=== PATIENT | male | born 1950 | race Caucasian/White ===

== ENCOUNTER 2017-12-22 07:53 | Inpatient (IN) | payer OTHER, MEDICARE ==
[~2017-12-22] VITALS: Ht 175.3 cm; Wt 105.6 kg
[2017-12-22] MEDS ORDERED: ALBUTEROL/IPRATROPIUM 2.5MG/0.5MG, 3 ML ONE ×2 (08:27→09:40)
[2017-12-22 09:11] LABS: BASOPHILS # (AUTO) 0.02 x10^3/uL (0-0.1); BASOPHILS % (AUTO) 0 % (0-1); EOSINOPHILS % (AUTO) 5 % (1-7); LYMPHOCYTES # (AUTO) 1.46 x10^3/uL (1-3.4); LYMPHOCYTES % (AUTO) 18 % (22-44); MD NO; MEAN CORPUSCULAR HEMOGLOBIN 31.5 pg (27.5-34.5); MEAN CORPUSCULAR HGB CONC 34.3 g/dL (33.2-36.2); MEAN CORPUSCULAR VOLUME 91.7 fL (81-97); MEAN PLATELET VOLUME 10.5 fL (7.4-10.4); MONOCYTES # (AUTO) 1.13 x10^3/uL (0.2-0.8); MONOCYTES % (AUTO) 14 % (2-9); NEUTROPHILS # (AUTO) 4.93 x10^3/uL (1.8-6.8); NEUTROPHILS % (AUTO) 62 % (42-75); PLATELET COUNT 140 x10^3/uL (130-400); RED BLOOD COUNT 4.99 x10^6/uL (4.38-5.82); RED CELL DISTRIBUTION WIDTH 13.1 % (9.4-14.8)
[2017-12-22 09:14] LABS: ALBUMIN 3.9 g/dL (3.4-5.0); ANION GAP 10 mmol/L (5-15); CALCIUM 9.1 mg/dL (8.5-10.1); CHLORIDE 107 mmol/L (98-107)
[2017-12-22 09:19] LABS: ALANINE AMINOTRANSFERASE 61 U/L (12-78); ALKALINE PHOSPHATASE 40 U/L (45-117); BILIRUBIN,TOTAL 0.4 mg/dL (0.2-1.0); CREATININE 1.08 mg/dL (0.7-1.3); TOTAL PROTEIN 7.3 g/dL (6.4-8.2); TROPONIN I < 0.015 ng/mL (0.000-0.045)
[2017-12-22] MEDS ORDERED: ALBUTEROL/IPRATROPIUM 2.5MG/0.5MG, 3 ML NPPB ONE (09:30)
[2017-12-22] MEDS ORDERED: MONT10TA9 PO (11:20)
[2017-12-22] MEDS ORDERED: OMEP10CA4 PO (11:20)
[2017-12-22] MEDS ORDERED: TIOT4MIS2 INH (11:20)
[2017-12-22] MEDS ORDERED: LISI-170 PO (11:20)
[2017-12-22] MEDS ORDERED: PREG200C PO (11:20)
[2017-12-22] MEDS ORDERED: AMLO10TA2 PO (11:20)
[2017-12-22] MEDS ORDERED: PRED5TAB PO (11:20)
[2017-12-22] MEDS ORDERED: FENO160T PO (11:20)
[2017-12-22] MEDS ORDERED: ENALAPRILAT 1.25 MG/ML, 2ML IVPush PRN (11:30)
[2017-12-22] MEDS ORDERED: ALBUTEROL SULFATE 2.5 MG/3 ML NPPB PRN ×2 (11:30→15:30)
[2017-12-22] MEDS ORDERED: ONDANSETRON 2MG/ML, 2ML IVPush PRN (11:30)
[2017-12-22] MEDS ORDERED: ALBUTEROL/IPRATROPIUM 2.5MG/0.5MG, 3 ML HHN SCH (11:30)
[2017-12-22] MEDS ORDERED: CEFTRIAXONE 1,000 MG in DEXTROSE 5% 50 ML IV SCH (12:00)
[2017-12-22 12:13] LABS: TROPONIN I < 0.015 ng/mL (0.000-0.045)
[2017-12-22 12:16] VITALS: BP 121/83
[2017-12-22] MEDS: ENOXAPARIN 40 MG/0.4 ML SQ SCH (13:24)
[2017-12-22] MEDS: CEFTRIAXONE 1,000 MG in SODIUM CHLORIDE 0.9% 50 ML IVPB SCH (13:24)
[2017-12-22] MEDS: AZITHROMYCIN 500 MG in SODIUM CHLORIDE 0.9% 250 ML IV SCH (14:29)
[2017-12-22] MEDS: methylPREDNISolone SOD SUCC 125 MG/2 ML IVPush SCH ×2 (14:31→20:50)
[2017-12-22] MEDS ORDERED: ALBUTEROL SULFATE 2.5 MG/3 ML NPPB SCH (15:00)
[2017-12-22] MEDS: GUAIFENESIN 200 MG TABLET PO SCH ×2 (16:09→20:50)
[2017-12-22 19:22] LABS: TROPONIN I < 0.015 ng/mL (0.000-0.045)
[2017-12-22 19:45] VITALS: BP 99/60
[2017-12-22] MEDS: ALBUTEROL/IPRATROPIUM 2.5MG/0.5MG, 3 ML NPPB SCH (20:00)
[2017-12-23 01:58] VITALS: BP 105/60
[2017-12-23] MEDS: methylPREDNISolone SOD SUCC 125 MG/2 ML IVPush SCH ×4 (03:03→20:14)
[2017-12-23 05:12] LABS: BASOPHILS # (AUTO) 0.01 x10^3/uL (0-0.1); BASOPHILS % (AUTO) 0 % (0-1); EOSINOPHILS % (AUTO) 0 % (1-7); LYMPHOCYTES # (AUTO) 0.62 x10^3/uL (1-3.4); LYMPHOCYTES % (AUTO) 5 % (22-44); MD NO; MEAN CORPUSCULAR HEMOGLOBIN 31.9 pg (27.5-34.5); MEAN CORPUSCULAR HGB CONC 34.5 g/dL (33.2-36.2); MEAN CORPUSCULAR VOLUME 92.6 fL (81-97); MONOCYTES # (AUTO) 0.26 x10^3/uL (0.2-0.8); MONOCYTES % (AUTO) 2 % (2-9); NEUTROPHILS # (AUTO) 10.81 x10^3/uL (1.8-6.8); NEUTROPHILS % (AUTO) 92 % (42-75); PLATELET COUNT 143 x10^3/uL (130-400); RED BLOOD COUNT 4.72 x10^6/uL (4.38-5.82); RED CELL DISTRIBUTION WIDTH 12.5 % (9.4-14.8)
[2017-12-23 05:23] LABS: ALBUMIN 3.6 g/dL (3.4-5.0); ANION GAP 11 mmol/L (5-15); CHLORIDE 107 mmol/L (98-107)
[2017-12-23 05:27] LABS: ALANINE AMINOTRANSFERASE 52 U/L (12-78); ALKALINE PHOSPHATASE 35 U/L (45-117); BILIRUBIN,TOTAL 0.4 mg/dL (0.2-1.0); CREATININE 1.15 mg/dL (0.7-1.3); TOTAL PROTEIN 6.9 g/dL (6.4-8.2)
[2017-12-23] MEDS: GUAIFENESIN 200 MG TABLET PO SCH ×4 (05:58→20:14)
[2017-12-23] MEDS: ALBUTEROL/IPRATROPIUM 2.5MG/0.5MG, 3 ML NPPB SCH ×4 (07:00→19:12)
[2017-12-23 08:40] VITALS: BP 119/79
[2017-12-23 13:11] LABS: HEMOGLOBIN A1C 6.8 % (4.2-6.3)
[2017-12-23] MEDS: ENOXAPARIN 40 MG/0.4 ML SQ SCH (13:26)
[2017-12-23] MEDS: CEFTRIAXONE 1,000 MG in SODIUM CHLORIDE 0.9% 50 ML IVPB SCH (13:28)
[2017-12-23 14:10] VITALS: BP 108/64
[2017-12-23] MEDS: AZITHROMYCIN 500 MG in SODIUM CHLORIDE 0.9% 250 ML IV SCH (14:53)
[2017-12-23] MEDS: PREGABALIN 200 MG CAPSULE PO SCH ×2 (16:48→20:14)
[2017-12-23] MEDS: INSULIN LISPRO 100 UNITS/ML, PEN SQ-INSULIN SCH ×2 (18:23→20:14)
[2017-12-23 19:09] VITALS: BP 116/70
[2017-12-23] MEDS: MONTELUKAST 10 MG TABLET PO SCH (20:14)
[2017-12-24 02:08] VITALS: BP 117/81
[2017-12-24] MEDS: methylPREDNISolone SOD SUCC 125 MG/2 ML IVPush SCH ×4 (03:10→20:29)
[2017-12-24] MEDS: GUAIFENESIN 200 MG TABLET PO SCH ×4 (06:08→20:29)
[2017-12-24] MEDS: ALBUTEROL/IPRATROPIUM 2.5MG/0.5MG, 3 ML NPPB SCH ×4 (07:00→20:00)
[2017-12-24 08:01] VITALS: BP 120/79
[2017-12-24] MEDS ORDERED: TEMPLATE NON-FORMULARY MED. (Amlodipine Besylate (Amlodipine Besylate**) 10 MG) PO SCH (09:00)
[2017-12-24] MEDS: INSULIN LISPRO 100 UNITS/ML, PEN SQ-INSULIN SCH ×4 (09:32→20:40)
[2017-12-24] MEDS: OMEPRAZOLE 10 MG CAPSULE.DR PO SCH (09:34)
[2017-12-24] MEDS: PREGABALIN 200 MG CAPSULE PO SCH ×3 (09:34→20:29)
[2017-12-24] MEDS: FENOFIBRATE 145 MG TABLET PO SCH (09:36)
[2017-12-24] MEDS: CEFTRIAXONE 1,000 MG in SODIUM CHLORIDE 0.9% 50 ML IVPB SCH (12:40)
[2017-12-24] MEDS: ENOXAPARIN 40 MG/0.4 ML SQ SCH (12:40)
[2017-12-24 14:30] VITALS: BP 118/70
[2017-12-24] MEDS: AZITHROMYCIN 500 MG in SODIUM CHLORIDE 0.9% 250 ML IV SCH (15:59)
[2017-12-24 19:04] VITALS: BP 132/88
[2017-12-24] MEDS: MONTELUKAST 10 MG TABLET PO SCH (20:29)
[2017-12-25 01:32] VITALS: BP 134/90
[2017-12-25] MEDS: methylPREDNISolone SOD SUCC 125 MG/2 ML IVPush SCH ×4 (02:41→20:04)
[2017-12-25] MEDS: ALBUTEROL/IPRATROPIUM 2.5MG/0.5MG, 3 ML NPPB SCH ×5 (03:08→20:40)
[2017-12-25] MEDS: GUAIFENESIN 200 MG TABLET PO SCH ×4 (05:55→20:04)
[2017-12-25 08:04] VITALS: BP 132/91
[2017-12-25] MEDS: FENOFIBRATE 145 MG TABLET PO SCH (08:46)
[2017-12-25] MEDS: OMEPRAZOLE 10 MG CAPSULE.DR PO SCH (08:46)
[2017-12-25] MEDS: PREGABALIN 200 MG CAPSULE PO SCH ×3 (08:46→20:04)
[2017-12-25] MEDS: INSULIN LISPRO 100 UNITS/ML, PEN SQ-INSULIN SCH ×4 (08:47→21:03)
[2017-12-25] MEDS: ENOXAPARIN 40 MG/0.4 ML SQ SCH (13:30)
[2017-12-25 14:14] VITALS: BP 138/90
[2017-12-25] MEDS: CEFTRIAXONE 1,000 MG in SODIUM CHLORIDE 0.9% 50 ML IVPB SCH (14:40)
[2017-12-25 14:43] VITALS: BP 126/92
[2017-12-25] MEDS: AZITHROMYCIN 500 MG in SODIUM CHLORIDE 0.9% 250 ML IV SCH (16:19)
[2017-12-25 19:40] VITALS: BP 136/82
[2017-12-25] MEDS: MONTELUKAST 10 MG TABLET PO SCH (20:04)
[2017-12-26] MEDS: methylPREDNISolone SOD SUCC 125 MG/2 ML IVPush SCH ×4 (02:51→20:54)
[2017-12-26 03:52] VITALS: BP 134/77
[2017-12-26] MEDS: GUAIFENESIN 200 MG TABLET PO SCH ×4 (05:52→20:54)
[2017-12-26] MEDS: ALBUTEROL/IPRATROPIUM 2.5MG/0.5MG, 3 ML NPPB SCH ×4 (08:05→18:43)
[2017-12-26 08:30] VITALS: BP 150/81
[2017-12-26] MEDS: PREGABALIN 200 MG CAPSULE PO SCH ×3 (09:14→20:54)
[2017-12-26] MEDS: OMEPRAZOLE 10 MG CAPSULE.DR PO SCH (09:14)
[2017-12-26] MEDS: FENOFIBRATE 145 MG TABLET PO SCH (09:14)
[2017-12-26] MEDS: INSULIN LISPRO 100 UNITS/ML, PEN SQ-INSULIN SCH ×4 (09:15→20:54)
[2017-12-26 13:15] LABS: MEAN CORPUSCULAR HGB CONC 33.4 g/dL (33.2-36.2); MEAN CORPUSCULAR VOLUME 92.9 fL (81-97); MEAN PLATELET VOLUME 10.5 fL (7.4-10.4); PLATELET COUNT 143 x10^3/uL (130-400); RED BLOOD COUNT 4.96 x10^6/uL (4.38-5.82); RED CELL DISTRIBUTION WIDTH 12.8 % (9.4-14.8)
[2017-12-26 13:31] LABS: BASOPHILS # (AUTO) 0.01 x10^3/uL (0-0.1); BASOPHILS % (AUTO) 0 % (0-1); EOSINOPHILS % (AUTO) 0 % (1-7); LYMPHOCYTES # (AUTO) 0.37 x10^3/uL (1-3.4); LYMPHOCYTES % (AUTO) 3 % (22-44); MD SCAN; MONOCYTES # (AUTO) 1.01 x10^3/uL (0.2-0.8); MONOCYTES % (AUTO) 7 % (2-9); NEUTROPHILS # (AUTO) 13.59 x10^3/uL (1.8-6.8); NEUTROPHILS % (AUTO) 91 % (42-75)
[2017-12-26] MEDS: ENOXAPARIN 40 MG/0.4 ML SQ SCH (14:04)
[2017-12-26] MEDS: CEFTRIAXONE 1,000 MG in SODIUM CHLORIDE 0.9% 50 ML IVPB SCH (14:04)
[2017-12-26 14:30] VITALS: BP 145/93
[2017-12-26] MEDS: AZITHROMYCIN 500 MG in SODIUM CHLORIDE 0.9% 250 ML IV SCH (16:40)
[2017-12-26 19:06] VITALS: BP 129/84
[2017-12-26] MEDS: MONTELUKAST 10 MG TABLET PO SCH (20:54)
[2017-12-26] MEDS ORDERED: BUDESONIDE 0.5 MG/2 ML INHA INH SCH (21:00)
[2017-12-27 00:08] VITALS: BP 146/73
[2017-12-27] MEDS: methylPREDNISolone SOD SUCC 125 MG/2 ML IVPush SCH ×3 (03:09→17:22)
[2017-12-27] MEDS: GUAIFENESIN 200 MG TABLET PO SCH ×4 (06:25→20:36)
[2017-12-27 07:15] VITALS: BP 145/94
[2017-12-27] MEDS: ALBUTEROL/IPRATROPIUM 2.5MG/0.5MG, 3 ML NPPB SCH ×4 (07:50→20:35)
[2017-12-27] MEDS: INSULIN LISPRO 100 UNITS/ML, PEN SQ-INSULIN SCH ×4 (08:31→20:36)
[2017-12-27] MEDS: PREGABALIN 200 MG CAPSULE PO SCH ×3 (09:27→20:36)
[2017-12-27] MEDS: FENOFIBRATE 145 MG TABLET PO SCH (09:28)
[2017-12-27] MEDS: OMEPRAZOLE 10 MG CAPSULE.DR PO SCH (09:28)
[2017-12-27] MEDS: FLUTICASONE/VILANTEROL 100-25MCG/INH INH SCH (10:42)
[2017-12-27 13:30] VITALS: BP 123/87
[2017-12-27] MEDS: ENOXAPARIN 40 MG/0.4 ML SQ SCH (17:22)
[2017-12-27 19:25] VITALS: BP 140/94
[2017-12-27] MEDS: DOXYCYCLINE 100MG CAP PO SCH (20:36)
[2017-12-27] MEDS: MONTELUKAST 10 MG TABLET PO SCH (20:36)
[2017-12-28 02:27] VITALS: BP 153/82
[2017-12-28] MEDS: GUAIFENESIN 200 MG TABLET PO SCH ×4 (05:24→20:27)
[2017-12-28] MEDS: methylPREDNISolone SOD SUCC 125 MG/2 ML IVPush SCH ×2 (05:24→12:34)
[2017-12-28] MEDS: ALBUTEROL/IPRATROPIUM 2.5MG/0.5MG, 3 ML NPPB SCH ×4 (07:00→21:00)
[2017-12-28 07:02] VITALS: BP 155/95
[2017-12-28] MEDS: FLUTICASONE/VILANTEROL 100-25MCG/INH INH SCH (08:24)
[2017-12-28] MEDS: INSULIN LISPRO 100 UNITS/ML, PEN SQ-INSULIN SCH ×4 (08:24→20:26)
[2017-12-28] MEDS: DOXYCYCLINE 100MG CAP PO SCH ×2 (08:25→20:27)
[2017-12-28] MEDS: FENOFIBRATE 145 MG TABLET PO SCH (08:25)
[2017-12-28] MEDS: OMEPRAZOLE 10 MG CAPSULE.DR PO SCH (08:25)
[2017-12-28] MEDS: PREGABALIN 200 MG CAPSULE PO SCH ×3 (08:25→20:26)
[2017-12-28] MEDS: ENOXAPARIN 40 MG/0.4 ML SQ SCH (13:43)
[2017-12-28 15:09] VITALS: BP 140/86
[2017-12-28] MEDS: predniSONE 50MG TABLET PO SCH (16:57)
[2017-12-28 19:56] VITALS: BP 147/91
[2017-12-28] MEDS: MONTELUKAST 10 MG TABLET PO SCH (20:26)
[2017-12-29 02:53] VITALS: BP 157/90
[2017-12-29] MEDS: GUAIFENESIN 200 MG TABLET PO SCH ×2 (05:49→12:11)
[2017-12-29] MEDS: INSULIN LISPRO 100 UNITS/ML, PEN SQ-INSULIN SCH ×2 (07:00→12:17)
[2017-12-29] MEDS: ALBUTEROL/IPRATROPIUM 2.5MG/0.5MG, 3 ML NPPB SCH ×3 (07:15→14:50)
[2017-12-29 07:57] VITALS: BP 164/96
[2017-12-29] MEDS ORDERED: PRED20TA PO (08:34)
[2017-12-29] MEDS ORDERED: MONT10TA9 PO (08:34)
[2017-12-29] MEDS ORDERED: PRED10TA14 PO (08:34)
[2017-12-29] MEDS ORDERED: INSU100I11 SQ-INSULIN (08:34)
[2017-12-29] MEDS ORDERED: PRED5TAB PO (08:34)
[2017-12-29] MEDS ORDERED: FLUT1AER INH (08:34)
[2017-12-29] MEDS ORDERED: DOXY100C2 PO (08:34)
[2017-12-29] MEDS ORDERED: PRED10TA PO (08:34)
[2017-12-29] MEDS ORDERED: PRED50TA PO (08:34)
[2017-12-29] MEDS ORDERED: GUAI200T3 PO (08:34)
[2017-12-29] MEDS: PREGABALIN 200 MG CAPSULE PO SCH (08:39)
[2017-12-29] MEDS: DOXYCYCLINE 100MG CAP PO SCH (08:39)
[2017-12-29] MEDS: FLUTICASONE/VILANTEROL 100-25MCG/INH INH SCH (08:39)
[2017-12-29] MEDS: predniSONE 50MG TABLET PO SCH (08:40)
[2017-12-29] MEDS: FENOFIBRATE 145 MG TABLET PO SCH (08:40)
[2017-12-29] MEDS: OMEPRAZOLE 10 MG CAPSULE.DR PO SCH (08:40)
[2017-12-29] MEDS: ENOXAPARIN 40 MG/0.4 ML SQ SCH (13:30)
[2017-12-29 14:09] VITALS: BP 147/95
== END 2017-12-29 16:30 | disposition home or self-care (01) | DRG 189 ==
LOC: ED 11:06 → EDIP 11:07 → ED 11:39 → 3NE 12:08 → DCLOUNGE 12-29 16:03
PROVIDERS: ADMIT Internal Medicine; ATTEND Internal Medicine
DX: J96.01 Acute respiratory failure with hypoxia (principal); J45.51 Severe persistent asthma with (acute) exacerbation; J20.9 Acute bronchitis, unspecified; Z68.34 Body mass index [BMI] 34.0-34.9, adult; I10 Essential (primary) hypertension; E66.9 Obesity, unspecified; E78.00 Pure hypercholesterolemia, unspecified; Y92.89 Other specified places as the place of occurrence of the external cause; G62.9 Polyneuropathy, unspecified; T38.0X5A Adverse effect of glucocorticoids and synthetic analogues, initial encounter; R73.9 Hyperglycemia, unspecified; Z87.891 Personal history of nicotine dependence
CPT/HCPCS: 36415; 99285; J7613; J7620; 71046; 80053; 82962; 83036; 83735; 84484; 85025; 87040; 87070; 87081; 87205; 93005; 94640; J0456; J0696; J1650; J1815; J2930; J7050; J7512

== ENCOUNTER → 2018-01-01 | Outpatient (CLI) | payer OTHER ==
[~2018-01-01] MED LIST: AMLO10TA2 PO; DOXY100C2 PO; FENO160T PO; FLUT1AER INH; GUAI200T3 PO; INSU100I11 SQ-INSULIN; LISI-170 PO; MONT10TA9 PO; OMEP10CA4 PO; PRED10TA PO; PRED10TA14 PO; PRED20TA PO; PRED50TA PO; PRED5TAB PO; PREG200C PO; TIOT4MIS2 INH
== END | disposition home or self-care (01) ==
LOC: CFH 08:26
PROVIDERS: ATTEND Nurse Practitioner
DX: S22.32XD Fracture of one rib, left side, subsequent encounter for fracture with routine healing (principal); X58.XXXD Exposure to other specified factors, subsequent encounter
CPT/HCPCS: 71046

== ENCOUNTER 2018-04-09 11:39 | Observation (INO) | payer OTHER, MEDICARE ==
[~2018-04-09] VITALS: Ht 180.3 cm; Wt 103.5 kg
[~2018-04-09 11:39] MED LIST changes: -AMLO10TA2 PO; +AMLO10TA6 PO
[2018-04-09] MEDS ORDERED: ALBUTEROL/IPRATROPIUM 2.5MG/0.5MG, 3 ML NPPB ONE (12:30)
[2018-04-09] MEDS ORDERED: SODIUM CHLORIDE FLUSH 10ML SYR IVF ONE (12:30)
[2018-04-09] MEDS ORDERED: ALBUTEROL/IPRATROPIUM 2.5MG/0.5MG, 3 ML ONE ×2 (12:36→16:42)
[2018-04-09 13:08] LABS: BASOPHILS % (AUTO) 0 % (0-1); EOSINOPHILS % (AUTO) 0 % (1-7); LYMPHOCYTES # (AUTO) 0.51 x10^3/uL (1-3.4); LYMPHOCYTES % (AUTO) 6 % (22-44); MD NO; MEAN CORPUSCULAR HEMOGLOBIN 32.2 pg (27.5-34.5); MEAN CORPUSCULAR HGB CONC 34.3 g/dL (33.2-36.2); MEAN CORPUSCULAR VOLUME 93.8 fL (81-97); MEAN PLATELET VOLUME 10.9 fL (7.4-10.4); MONOCYTES # (AUTO) 0.61 x10^3/uL (0.2-0.8); MONOCYTES % (AUTO) 7 % (2-9); NEUTROPHILS # (AUTO) 7.78 x10^3/uL (1.8-6.8); NEUTROPHILS % (AUTO) 87 % (42-75); PLATELET COUNT 152 x10^3/uL (130-400); RED BLOOD COUNT 4.93 x10^6/uL (4.38-5.82); RED CELL DISTRIBUTION WIDTH 12.8 % (9.4-14.8)
[2018-04-09 13:18] LABS: ALBUMIN 4.1 g/dL (3.4-5.0); ANION GAP 9 mmol/L (5-15); CALCIUM 9.1 mg/dL (8.5-10.1); CHLORIDE 107 mmol/L (98-107)
[2018-04-09 13:23] LABS: ALANINE AMINOTRANSFERASE 46 U/L (12-78); ALKALINE PHOSPHATASE 41 U/L (45-117); BILIRUBIN,TOTAL 0.4 mg/dL (0.2-1.0); CREATININE 1.19 mg/dL (0.7-1.3); TOTAL PROTEIN 7.6 g/dL (6.4-8.2)
[2018-04-09] MEDS ORDERED: SODIUM CHLORIDE FLUSH 10ML SYR IVF PRN (14:00)
[2018-04-09] MEDS ORDERED: ACETAMINOPHEN 325 MG TABLET PO PRN (14:00)
[2018-04-09 15:30] VITALS: BP 117/75
[2018-04-09] MEDS: BUDESONIDE 0.5 MG/2 ML INHA NPPB SCH ×2 (15:30→19:54)
[2018-04-09] MEDS ORDERED: ALBUTEROL SULFATE 2.5 MG/3 ML NPPB SCH (15:30)
[2018-04-09] MEDS: PREGABALIN 200 MG CAPSULE PO SCH ×2 (15:55→20:53)
[2018-04-09] MEDS: methylPREDNISolone SOD SUCC 40 MG/ML IVPush SCH ×2 (15:55→22:21)
[2018-04-09] MEDS: GUAIFENESIN 200 MG TABLET PO SCH ×2 (15:55→20:53)
[2018-04-09] MEDS ORDERED: INSULIN LISPRO 100 UNITS/ML, PEN SQ-INSULIN SCH (16:00)
[2018-04-09 18:48] VITALS: BP 104/75
[2018-04-09] MEDS: ALBUTEROL/IPRATROPIUM 2.5MG/0.5MG, 3 ML NPPB SCH (19:54)
[2018-04-09] MEDS: MONTELUKAST 10 MG TABLET PO SCH (20:53)
[2018-04-09] MEDS: INSULIN LISPRO 100 UNITS/ML, PEN SQ-INSULIN SCH (22:47)
[2018-04-10 00:52] VITALS: BP 110/71
[2018-04-10] MEDS: methylPREDNISolone SOD SUCC 40 MG/ML IVPush SCH ×2 (04:29→10:11)
[2018-04-10] MEDS: GUAIFENESIN 200 MG TABLET PO SCH ×4 (06:22→21:13)
[2018-04-10] MEDS: ALBUTEROL/IPRATROPIUM 2.5MG/0.5MG, 3 ML NPPB SCH ×4 (07:21→20:00)
[2018-04-10] MEDS: AMLODIPINE 10 MG TAB PO SCH (07:35)
[2018-04-10] MEDS: OMEPRAZOLE 10 MG CAPSULE.DR PO SCH (07:35)
[2018-04-10] MEDS: PREGABALIN 200 MG CAPSULE PO SCH ×3 (07:35→21:13)
[2018-04-10] MEDS: LISINOPRIL 20 MG TABLET PO SCH (07:36)
[2018-04-10] MEDS: INSULIN LISPRO 100 UNITS/ML, PEN SQ-INSULIN SCH ×4 (07:38→21:13)
[2018-04-10 07:40] VITALS: BP 135/79
[2018-04-10] MEDS: TEMPLATE NON-FORMULARY MED. (Fenofibrate** 160 MG) HOMEMEDPO SCH (08:34)
[2018-04-10] MEDS: TIOTROPIUM BROMIDE INH SCH (08:34)
[2018-04-10] MEDS ORDERED: FLUTICASONE/VILANTEROL 100-25MCG/INH INH SCH (09:00)
[2018-04-10] MEDS: BUDESONIDE 0.5 MG/2 ML INHA NPPB SCH ×2 (11:09→20:38)
[2018-04-10 14:00] VITALS: BP 102/65
[2018-04-10] MEDS: methylPREDNISolone SOD SUCC 125 MG/2 ML IVPush SCH ×3 (16:28→23:00)
[2018-04-10 20:00] VITALS: BP 129/78
[2018-04-10] MEDS: MONTELUKAST 10 MG TABLET PO SCH (21:13)
[2018-04-11 00:20] VITALS: BP 117/79
[2018-04-11] MEDS: BUDESONIDE 0.5 MG/2 ML INHA NPPB SCH ×2 (03:30→19:30)
[2018-04-11] MEDS: GUAIFENESIN 200 MG TABLET PO SCH ×4 (05:16→21:06)
[2018-04-11] MEDS: methylPREDNISolone SOD SUCC 125 MG/2 ML IVPush SCH ×4 (05:16→23:05)
[2018-04-11] MEDS: ALBUTEROL/IPRATROPIUM 2.5MG/0.5MG, 3 ML NPPB SCH ×4 (06:29→19:30)
[2018-04-11 07:22] VITALS: BP 113/76
[2018-04-11] MEDS: INSULIN LISPRO 100 UNITS/ML, PEN SQ-INSULIN SCH ×4 (07:53→21:07)
[2018-04-11] MEDS: TEMPLATE NON-FORMULARY MED. (Fenofibrate** 160 MG) HOMEMEDPO SCH (08:23)
[2018-04-11] MEDS: PREGABALIN 200 MG CAPSULE PO SCH ×3 (08:24→21:06)
[2018-04-11] MEDS: OMEPRAZOLE 10 MG CAPSULE.DR PO SCH (08:24)
[2018-04-11] MEDS: TIOTROPIUM BROMIDE INH SCH (08:24)
[2018-04-11] MEDS: LISINOPRIL 20 MG TABLET PO SCH (08:24)
[2018-04-11] MEDS: AMLODIPINE 10 MG TAB PO SCH (08:25)
[2018-04-11 15:58] VITALS: BP 123/79
[2018-04-11 18:44] VITALS: BP 117/73
[2018-04-11] MEDS: MONTELUKAST 10 MG TABLET PO SCH (21:06)
[2018-04-12 00:57] VITALS: BP 124/74
[2018-04-12] MEDS: methylPREDNISolone SOD SUCC 125 MG/2 ML IVPush SCH ×2 (04:43→11:00)
[2018-04-12] MEDS: GUAIFENESIN 200 MG TABLET PO SCH ×2 (06:13→11:37)
[2018-04-12] MEDS: ALBUTEROL/IPRATROPIUM 2.5MG/0.5MG, 3 ML NPPB SCH ×2 (06:58→10:45)
[2018-04-12] MEDS: BUDESONIDE 0.5 MG/2 ML INHA NPPB SCH (06:58)
[2018-04-12 07:18] VITALS: BP 133/79
[2018-04-12] MEDS: TEMPLATE NON-FORMULARY MED. (Fenofibrate** 160 MG) HOMEMEDPO SCH (07:39)
[2018-04-12] MEDS: INSULIN LISPRO 100 UNITS/ML, PEN SQ-INSULIN SCH ×2 (07:39→11:37)
[2018-04-12] MEDS: TIOTROPIUM BROMIDE INH SCH (07:40)
[2018-04-12] MEDS: LISINOPRIL 20 MG TABLET PO SCH (07:42)
[2018-04-12] MEDS: PREGABALIN 200 MG CAPSULE PO SCH (07:42)
[2018-04-12] MEDS: AMLODIPINE 10 MG TAB PO SCH (07:42)
[2018-04-12] MEDS: OMEPRAZOLE 10 MG CAPSULE.DR PO SCH (07:42)
[2018-04-12] MEDS ORDERED: IPRA3AMP30 NPPB (10:56)
[2018-04-12] MEDS ORDERED: PRED10TA PO (10:56)
[2018-04-12] MEDS ORDERED: BUDE0.5A NPPB (10:56)
== END 2018-04-12 13:35 | disposition home or self-care (01) ==
LOC: ED 13:08 → SUATTDRO 13:42 → INTOOBSV 14:04 → OBSVTOIN 14:04 → EDIP 14:04 → 4NOR 14:45 → DCLOUNGE 04-12 13:22
PROVIDERS: ADMIT Hospitalist; ATTEND Hospitalist
DX: J44.1 Chronic obstructive pulmonary disease with (acute) exacerbation (principal); E11.40 Type 2 diabetes mellitus with diabetic neuropathy, unspecified; I10 Essential (primary) hypertension; E78.00 Pure hypercholesterolemia, unspecified; E66.9 Obesity, unspecified; Z79.52 Long term (current) use of systemic steroids; Z87.891 Personal history of nicotine dependence; Z99.81 Dependence on supplemental oxygen
CPT/HCPCS: 36415; 71046; 80053; 82962; 83880; 85025; 93005; 94640; 96372; 96374; 96376; 99284; G0378; J1815; J2920; J2930; J7620; J7626

== ENCOUNTER 2019-06-03 07:21 | Day surgery (SDC) | payer MEDICARE ==
[~2019-06-03] VITALS: Ht 167.6 cm; Wt 104.0 kg
[~2019-06-03 07:21] MED LIST changes: -AMLO10TA6 PO; +AMLO10TA8 PO; +BUDE0.5A NPPB; -GUAI200T3 PO; +GUAI200T37 PO; +IPRA3AMP30 NPPB; -OMEP10CA4 PO; +OMEP10CA5 PO
[2019-06-03 07:43] VITALS: BP 146/79
[2019-06-03] MEDS ORDERED: OMEG-170 PO (07:54)
[2019-06-03] MEDS ORDERED: CABE0.5T PO (07:54)
[2019-06-03] MEDS ORDERED: TAMS-11 PO (07:54)
[2019-06-03] MEDS ORDERED: VITA100C8 PO (07:54)
[2019-06-03] MEDS ORDERED: SILD100T PO (07:54)
[2019-06-03] MEDS ORDERED: PREG200C PO (07:57)
[2019-06-03] MEDS ORDERED: LYSI500T8 PO (07:57)
[2019-06-03] MEDS ORDERED: ALBUTEROL SULFATE 2.5 MG/3 ML ONE (08:15)
[2019-06-03] MEDS ORDERED: SODIUM CHLORIDE 0.9% 1,000 ML IV SCH (08:22)
[2019-06-03] MEDS ORDERED: FENTANYL PF 100 MCG/2ML ONE (08:27)
[2019-06-03] MEDS ORDERED: MIDAZOLAM 1 MG/ML, 5ML ONE (08:28)
[2019-06-03] MEDS ORDERED: DIPHENHYDRAMINE 50 MG/ML, 1ML ONE (08:28)
[2019-06-03] MEDS ORDERED: GLYCOPYRROLATE 0.4 MG/2 ML, 2ML ONE (08:29)
[2019-06-03] MEDS ORDERED: ALBUTEROL SULFATE 2.5 MG/3 ML NPPB ONE (08:30)
[2019-06-03] MEDS: ALBUTEROL SULFATE 2.5 MG/3 ML NPPB PRN ×2 (09:55→11:25)
[2019-06-03] MEDS ORDERED: BUDESONIDE 0.5 MG/2 ML INHA INH SCH (11:20)
[2019-06-03] MEDS ORDERED: LIDOCAINE 4% TOPICAL SOLUTION 50 ML ONE (12:00)
== END 2019-06-03 12:25 | disposition home or self-care (01) ==
LOC: OUT 07:21
PROVIDERS: ATTEND Internal Medicine
DX: J45.50 Severe persistent asthma, uncomplicated (principal); J96.11 Chronic respiratory failure with hypoxia; G47.33 Obstructive sleep apnea (adult) (pediatric); Z79.899 Other long term (current) drug therapy
CPT/HCPCS: 31660; 82962; 94640; 99152; 99153; C1886; J1200; J2250; J3010; J7030; J7613; J7626

== ENCOUNTER 2019-06-24 07:14 | Day surgery (SDC) | payer MEDICARE ==
[~2019-06-24] VITALS: Ht 177.8 cm; Wt 102.8 kg
[~2019-06-24 07:14] MED LIST changes: +CABE0.5T PO; +LYSI500T8 PO; +MONT10TA11 PO; -MONT10TA9 PO; +OMEG-170 PO; +SILD100T PO; +TAMS-11 PO; +VITA100C8 PO
[2019-06-24] MEDS ORDERED: DIPHENHYDRAMINE 50 MG/ML, 1ML ONE (07:45)
[2019-06-24] MEDS ORDERED: MIDAZOLAM 1 MG/ML, 5ML ONE (07:45)
[2019-06-24] MEDS ORDERED: FENTANYL PF 100 MCG/2ML ONE (07:45)
[2019-06-24] MEDS ORDERED: GLYCOPYRROLATE 0.4 MG/2 ML, 2ML ONE (07:46)
[2019-06-24] MEDS ORDERED: ALBUTEROL SULFATE 2.5 MG/3 ML ONE (08:05)
[2019-06-24] MEDS ORDERED: SODIUM CHLORIDE 0.9% 1,000 ML IV SCH (08:24)
[2019-06-24] MEDS ORDERED: PRED50TA PO (08:35)
[2019-06-24] MEDS ORDERED: MONT10TA11 PO (08:35)
[2019-06-24] MEDS ORDERED: FLUT1AER INH (08:35)
[2019-06-24] MEDS ORDERED: INSU100C SQ-INSULIN (08:35)
[2019-06-24 08:37] VITALS: BP 122/77
[2019-06-24] MEDS ORDERED: LIDOCAINE GEL 2%, 5ML ONE (10:50)
[2019-06-24] MEDS ORDERED: LIDOCAINE 4% TOPICAL SOLUTION 50 ML ONE (10:50)
[2019-06-24] MEDS ORDERED: LIDOCAINE 2%, 20ML ONE (10:50)
== END 2019-06-24 12:50 | disposition home or self-care (01) ==
LOC: OUT 07:14
PROVIDERS: ATTEND Internal Medicine
DX: J45.50 Severe persistent asthma, uncomplicated (principal); J96.11 Chronic respiratory failure with hypoxia; E11.9 Type 2 diabetes mellitus without complications; I10 Essential (primary) hypertension; E66.9 Obesity, unspecified; G47.33 Obstructive sleep apnea (adult) (pediatric); Z68.32 Body mass index [BMI] 32.0-32.9, adult; Z79.899 Other long term (current) drug therapy; Z79.4 Long term (current) use of insulin; Z87.891 Personal history of nicotine dependence
CPT/HCPCS: 31660; 82962; 94640; 99152; 99153; C1886; J1200; J2250; J3010; J7030

== ENCOUNTER 2019-07-15 11:22 | Day surgery (SDC) | payer MEDICARE ==
[~2019-07-15] VITALS: Ht 177.8 cm; Wt 103.1 kg
[~2019-07-15 11:22] MED LIST changes: +INSU100C SQ-INSULIN
[2019-07-15 11:35] VITALS: BP 137/81
[2019-07-15] MEDS ORDERED: SODIUM CHLORIDE 0.9% 1,000 ML IV SCH (11:39)
[2019-07-15 11:48] VITALS: BP 137/81
[2019-07-15] MEDS ORDERED: LIDOCAINE 4% TOPICAL SOLUTION 50 ML ONE (12:00)
[2019-07-15] MEDS ORDERED: ALBUTEROL SULFATE 2.5 MG/3 ML NPPB PRN (12:00)
[2019-07-15] MEDS ORDERED: LIDOCAINE 2%, 20ML ONE (12:00)
[2019-07-15] MEDS ORDERED: ALBUTEROL SULFATE 2.5 MG/3 ML ONE ×2 (12:10→14:37)
[2019-07-15] MEDS ORDERED: GLYCOPYRROLATE 0.4 MG/2 ML, 2ML ONE (12:37)
[2019-07-15] MEDS ORDERED: DIPHENHYDRAMINE 50 MG/ML, 1ML ONE (12:37)
[2019-07-15] MEDS ORDERED: MIDAZOLAM 1 MG/ML, 5ML ONE (13:02)
[2019-07-15] MEDS ORDERED: FENTANYL PF 100 MCG/2ML ONE (13:02)
== END 2019-07-15 16:15 | disposition home or self-care (01) ==
LOC: OUT 11:22
PROVIDERS: ATTEND Internal Medicine
DX: J45.50 Severe persistent asthma, uncomplicated (principal); J96.11 Chronic respiratory failure with hypoxia; I10 Essential (primary) hypertension; G47.33 Obstructive sleep apnea (adult) (pediatric); E66.9 Obesity, unspecified; Z68.32 Body mass index [BMI] 32.0-32.9, adult; Z79.899 Other long term (current) drug therapy
CPT/HCPCS: 31661; 94640; 99152; 99153; C1886; J1200; J2250; J3010; J7030